=== PATIENT | female | born 1960 | race Caucasian/White ===

== ENCOUNTER 2025-05-06 15:24 | Emergency (ER) | payer SELFPAY ==
[2025-05-06 15:28] VITALS: BP 126/75; PULSE 78; TEMP 36.9; O2SAT 95; BMI 25.8
--- NOTE | 2025-05-06 16:07 | ED.GENADUL1 ---
HPI HPI - General Adult General Chief complaint: Extremity Problem, Nontraumatic Stated complaint: Like to be check for tick Time Seen by Provider: 05/06/25 15:59 Source: patient Mode of arrival: walk-in Limitations: no limitations History of Present Illness HPI narrative: The patient 65-year-old female is coming to the ER to be evaluated for right knee pain. The patient apparently few weeks ago she thinks she had a tick bite although she is not sure that she actually had a bite she saw the tick on her skin and she just removed in with her hand The patient was walking in the [place] for an hour maximum She denies any fever chills or any other concerns she has been having this knee pain that is positional and sometimes happen in certain position Related Data Home Medications ?Medication ?Instructions ?Recorded ?Confirmed No Known Home Medications 05/06/25 05/06/25 Allergies Allergy/AdvReac Type Severity Reaction Status Date / Time No Known Drug Allergies Allergy Verified 05/06/25 15:35 Review of Systems ROS Status of ROS 10 or more systems reviewed and unremarkable except as noted in history and below PFSH PFSH Social History Little interest or pleasure in doing things: not at all Feeling down, depressed, or hopeless: not at all Exam Narrative Exam Narrative: Nurses notes and vital signs reviewed and patient is not hypoxic. General: Well-appearing and in no apparent distress. Skin: Warm, dry, no pallor noted. No rash. Head: Normocephalic, atraumatic. Neck: Supple, non-tender. Cardiovascular: Regular Rate and Rhythm without murmur, gallop or rub. Respiratory: No accessory muscle use or respiratory distress. Lungs are clear to auscultation, no wheezing, rales or rhonchi Chest Wall: no tenderness Back: No midline thoracic or lumbar vertebral tenderness. No CVA tenderness Musculoskeletal: normal ROM, no calf or popliteal tenderness, no lower extremity edema/swelling GI: Abdomen is soft, non-distended. Normal bowel sounds. No masses appreciated. No tenderness to palpation. No rebound, guarding, or rigidity noted. Neurological: A&O x4. No cranial nerve dysfunction observed. No truncal ataxia. Moves all extremities. Sensation intact. Psychiatric: Cooperative and interactive. Normal mood and affect. Constitutional Vital Signs, click to edit/add: Last Vital Signs Temp 98.5 F 05/06/25 15:28 Pulse 78 05/06/25 15:28 Resp 18 05/06/25 15:28 BP 126/75 05/06/25 15:28 Pulse Ox 95 05/06/25 15:28 O2 Del Method Room Air 05/06/25 15:28 Course Vital Signs Vital signs: Vital Signs Temperature 98.5 F 05/06/25 15:28 Pulse Rate 78 05/06/25 15:28 Respiratory Rate 18 05/06/25 15:28 Blood Pressure 126/75 05/06/25 15:28 Pulse Oximetry 95 05/06/25 15:28 Oxygen Delivery Method Room Air 05/06/25 15:28 Temperature 98.5 F 05/06/25 15:28 Pulse Rate 78 05/06/25 15:28 Respiratory Rate 18 05/06/25 15:28 Blood Pressure 126/75 05/06/25 15:28 Pulse Oximetry 95 05/06/25 15:28 Oxygen Delivery Method Room Air 05/06/25 15:28 Medical Decision Making MDM Narrative Medical decision making narrative: The patient have a complete benign examination and her presentation and even her concern about possible tick bite does not seem to be correlating with possible exposure at the patient does not have any symptoms did not have any bite and this happened few weeks ago Patient still can be referred to her primary care doctor for further evaluation and care as needed Patient provided with a primary care doctor information The patient is to follow up with primary care physician in next 2-3 days or to return to the emergency department should any of the signs or symptoms worsen or new symptoms develop. The patient agrees with the following Diagnosis and Treatment plan and the patient will be discharged home. Discharge Plan Discharge Chief Complaint: Extremity Problem, Nontraumatic Clinical Impression: Knee pain Patient Disposition: Home, Self-Care Time of Disposition Decision: 16:08 Condition: Good Mode of Transportation: Private Vehicle Prescriptions / Home Meds: No Action No Known Home Medications Print Language: [place]an Instructions: Knee Pain (ED) Referrals: Physician,Non-Staff, MD [Primary Care Provider] - 1 week Discharge Date/Time: 05/06/25 16:40
== END 2025-05-06 16:40 | disposition home or self-care (01) ==
PROVIDERS: Emergency Provider Emergency Medicine
DX: M25.561 Pain in right knee (principal)
CPT/HCPCS: 99281